=== PATIENT | female | born 1990 | race African-American/Black ===

== ENCOUNTER 2019-01-20 08:50 | Emergency (ER) | payer SELFPAY ==
[~2019-01-20] VITALS: Ht 172.7 cm; Wt 109.1 kg
[2019-01-20 08:54] VITALS: BP 110/64; Ht 172.7 cm; Wt 109.1 kg
[2019-01-20 09:43] LABS: HEMATOCRIT 32.7 % (36.0-48.0); HEMOGLOBIN 11.6 g/dL (12-16); MCH 30.4 pg (26.0-34.0); MCHC 35.5 g/dL (31.0-37.0); MCV 85.8 fL (80.0-100.0); MEAN PLATELET VOLUME 8.7 fL (7.4-10.4); PLATELET COUNT 327 10x3/uL (130-400); RBC 3.81 10x6/uL (4.00-5.40); RDW 12.9 % (11.5-14.5)
[2019-01-20 09:50] LABS: HCG SERUM NEGATIVE (NEGATIVE)
[2019-01-20 09:56] LABS: ALBUMIN 3.6 g/dL (3.4-5.0); ALKALINE PHOSPHATASE 51 U/L (46-116); ALT (SGPT) 31 U/L (10-68); BILIRUBIN - TOTAL 0.77 mg/dL (0.2-1.3); CALC OSMOLALITY 284 mosm/kg (275-300); CALCIUM 9.1 mg/dL (8.5-10.1); CARBON DIOXIDE 28.4 mmol/L (21.0-32.0); CHLORIDE - SERUM 109 mmol/L (98-107); CREATININE - SERUM 0.9 mg/dL (0.6-1.3); GLUCOSE 82 mg/dL (74-106); POTASSIUM - SERUM 4.2 mmol/L (3.5-5.1); PROTEIN - SERUM 6.8 g/dL (6.4-8.2); SODIUM 145 mmol/L (136-145); UREA NITROGEN 5 mg/dL (7-18); eGFR NON AFRICAN AMERICAN 80 mL/min (90-120)
[2019-01-20 11:13] LABS: APPEARANCE HAZY (CLEAR); BILIRUBIN NEGATIVE (NEGATIVE); COLOR YELLOW (YELLOW); GLUCOSE NEGATIVE (NEGATIVE); KETONE NEGATIVE (NEGATIVE); NITRITE POSITIVE (NEGATIVE); PROTEIN 1+ mg/dL (NEGATIVE); SPECIFIC GRAVITY 1.005 (1.005-1.020); UROBILINOGEN NORMAL (NORMAL)
[2019-01-20 11:14] LABS: BACTERIA MANY /hpf (NONE SEEN); EPITHELIAL CELLS 0-5 /hpf (0-5); MUCUS <1+ /lpf (NONE SEEN); UDS - AMPHET NEGATIVE QUAL (NEGATIVE); UDS - BARB NEGATIVE QUAL (NEGATIVE); UDS - BENZO NEGATIVE QUAL (NEGATIVE); UDS - COCAINE NEGATIVE QUAL (NEGATIVE); UDS - OPIATE NEGATIVE QUAL (NEGATIVE); UDS - PCP NEGATIVE QUAL (NEGATIVE); UDS - THC POSITIVE QUAL (NEGATIVE); WHITE CELLS - URINE OCC /hpf (0-5)
[2019-01-20 11:15] LABS: EPITHELIAL CELL CAST RARE /lpf (NONE SEEN)
[2019-01-20] MEDS ORDERED: MACROBID100 MG PO (11:17)
[2019-01-20] MEDS ORDERED: KEFLEX500 MG PO (11:17)
[2019-01-20 11:39] LABS: LYMPHOCYTES 18 % (15-50); MONOCYTES 10 % (2-11); NEUTROPHILS 72 % (40-80); PLATELET ESTIMATE NORMAL
[2019-01-20 11:42] LABS: CRENATED CELLS OCC
== END 2019-01-20 12:20 | disposition home or self-care (01) ==
LOC: D.ER 08:50
PROVIDERS: Family Medicine
DX: M79.645 Pain in left finger(s) (principal); N39.0 Urinary tract infection, site not specified; F22 Delusional disorders; F17.200 Nicotine dependence, unspecified, uncomplicated

== ENCOUNTER 2019-01-20 14:16 | Emergency (ER) | payer SELFPAY ==
[~2019-01-20] VITALS: Ht 172.7 cm; Wt 109.1 kg
[~2019-01-20 14:16] MED LIST: KEFLEX500 MG PO; MACROBID100 MG PO
[2019-01-20 14:26] VITALS: Ht 172.7 cm; Wt 109.1 kg
--- NOTE | 2019-01-20 15:39 | NUR ---
DR. BLAS NOTIFIED AND SITTER ORDERED. SITTER AT BEDSIDE. NOTIFIED CHARGE NURSE AND ATTENDING OF ASSESSMENT FINDINGS. RESOURCES GIVEN TO PT AND SAFETY PLAN INITIATED. PATIENT STATES THAT SHE INTENDS TO EITHER JUMP FROM A BRIDGE OR JUMP INTO TRAFFIC TO END HER LIFE.
[2019-01-20 18:48] VITALS: BP 121/54
== END 2019-01-20 19:38 ==
LOC: D.ER 14:16
DX: R45.851 Suicidal ideations (principal); N39.0 Urinary tract infection, site not specified

== ENCOUNTER 2019-02-02 15:59 | Emergency (ER) | payer MEDICAID ==
[~2019-02-02] VITALS: Ht 172.7 cm; Wt 100.0 kg
[2019-02-02 16:07] VITALS: Ht 172.7 cm; Wt 100.0 kg
[2019-02-02 16:59] LABS: HCG URINE NEGATIVE (NEGATIVE)
[2019-02-02 17:17] LABS: UDS - AMPHET NEGATIVE QUAL (NEGATIVE); UDS - BARB NEGATIVE QUAL (NEGATIVE); UDS - BENZO NEGATIVE QUAL (NEGATIVE); UDS - COCAINE NEGATIVE QUAL (NEGATIVE); UDS - OPIATE NEGATIVE QUAL (NEGATIVE); UDS - PCP NEGATIVE QUAL (NEGATIVE); UDS - THC POSITIVE QUAL (NEGATIVE)
--- NOTE | 2019-02-02 19:10 | NUR ---
PSYCHIATRIST NOTIFIED AND SITTER ORDERED, SITTER AT BEDSIDE. NOTIFIED CHARGE NURSE AND ATTENDING IN REGARDS TO ASSESSMENT FINDINGS. RESOURCES GIVEN TO PT AND SAFETY PLAN INITIATED.
[2019-02-02 20:00] LABS: BASOPHILS 0.4 % (0-2); EOSINOPHILS 2.3 % (0-7); HEMATOCRIT 36.6 % (36.0-48.0); HEMOGLOBIN 12.5 g/dL (12-16); IMMATURE GRANULOCYTES 0.2 % (0-5); MCH 30.5 pg (26.0-34.0); MCHC 34.2 g/dL (31.0-37.0); MCV 89.3 fL (80.0-100.0); MEAN PLATELET VOLUME 8.8 fL (7.4-10.4); MONOCYTES 8.4 % (2-11); NEUTROPHILS 47.7 % (40-80); PLATELET COUNT 310 10x3/uL (130-400); RDW 12.9 % (11.5-14.5); WBC 4.8 10x3/uL (4.8-10.8)
[2019-02-02 20:08] LABS: APPEARANCE CLEAR (CLEAR); COLOR YELLOW (YELLOW)
[2019-02-02 20:09] LABS: BILIRUBIN NEGATIVE (NEGATIVE); GLUCOSE NEGATIVE (NEGATIVE); KETONE NEGATIVE (NEGATIVE); NITRITE NEGATIVE (NEGATIVE); PROTEIN NEGATIVE (NEGATIVE); SPECIFIC GRAVITY 1.025 (1.005-1.020); UROBILINOGEN NORMAL (NORMAL)
[2019-02-02 20:10] LABS: RED CELLS - URINE 0-5 /hpf (0-5); WHITE CELLS - URINE OCC /hpf (NEGATIVE)
[2019-02-02 20:11] LABS: BACTERIA FEW /hpf (NEGATIVE); MUCUS >1+ /lpf (NONE SEEN)
[2019-02-02 20:20] LABS: ALBUMIN 3.8 g/dL (3.4-5.0); ALKALINE PHOSPHATASE 55 U/L (46-116); ALT (SGPT) 17 U/L (10-68); BILIRUBIN - TOTAL 0.57 mg/dL (0.2-1.3); CALC OSMOLALITY 277 mosm/kg (275-300); CALCIUM 8.7 mg/dL (8.5-10.1); CARBON DIOXIDE 29.7 mmol/L (21.0-32.0); CHLORIDE - SERUM 105 mmol/L (98-107); CREATININE - SERUM 0.7 mg/dL (0.6-1.3); GLUCOSE 87 mg/dL (74-106); POTASSIUM - SERUM 3.5 mmol/L (3.5-5.1); PROTEIN - SERUM 7.3 g/dL (6.4-8.2); SODIUM 140 mmol/L (136-145); UREA NITROGEN 12 mg/dL (7-18); eGFR NON AFRICAN AMERICAN > 90 mL/min (90-120)
[2019-02-02 21:55] VITALS: BP 118/78
== END 2019-02-02 22:10 | disposition home or self-care (01) ==
LOC: D.ER 15:59
PROVIDERS: Family Medicine
DX: M25.532 Pain in left wrist (principal); M25.572 Pain in left ankle and joints of left foot; M25.571 Pain in right ankle and joints of right foot